=== PATIENT | male | born 1975 | race Caucasian/White ===

== ENCOUNTER → 2021-07-17 | Outpatient (CLI) | payer MEDICARE, OTHER | LOC: RAD 12:15 | DX: M79.641 Pain in right hand (principal) | CPT/HCPCS: 73130 ==

== ENCOUNTER 2021-09-26 16:16 | Emergency (ER) | payer MEDICARE, OTHER ==
[2021-09-26 17:53] LABS: HEMOGLOBIN 14.1 gm/dl (14.0-17.5); RED BLOOD COUNT 4.51 M/UL (4.20-5.50); WHITE BLOOD COUNT 5.2 K/UL (4.5-11.0)
[2021-09-26 18:33] LABS: BUN/CREATININE RATIO 16 (0-10)
[2021-09-26] MEDS ORDERED: LEVOFLOXACIN500 MG PO (20:32)
== END 2021-09-26 21:00 | disposition home or self-care (01) ==
LOC: ER1 16:16
PROVIDERS: Physician Assistant Medical
DX: N45.2 Orchitis (principal); N43.3 Hydrocele, unspecified; E87.1 Hypo-osmolality and hyponatremia; Z88.8 Allergy status to other drugs, medicaments and biological substances; Z79.82 Long term (current) use of aspirin
CPT/HCPCS: 76870; 80053; 81001; 85025; 99284; Q9967